=== PATIENT | male | born 1940 | race Caucasian/White ===

== ENCOUNTER 2020-05-21 08:46 | Inpatient (IN) | payer MEDICARE, OTHER ==
[~2020-05-21] VITALS: Ht 172.7 cm; Wt 116.1 kg
[2020-05-24 09:47] LABS: BASOPHILS 0.6 % (0-2); EOSINOPHILS 1.2 % (0-7); HEMATOCRIT 32.8 % (42.0-54.0); HEMOGLOBIN 10.2 g/dL (13.5-17.5); IMMATURE GRANULOCYTES 0.2 % (0-5); LYMPHOCYTES 20.2 % (15-50); MCH 28.1 pg (26.0-34.0); MCHC 31.1 g/dL (31.0-37.0); MCV 90.4 fL (80.0-100.0); MEAN PLATELET VOLUME 9.4 fL (7.4-10.4); MONOCYTES 6.1 % (2-11); NEUTROPHILS 71.7 % (40-80); PLATELET COUNT 166 10x3/uL (130-400); RBC 3.63 10x6/uL (4.20-6.10); RDW 14.9 % (11.5-14.5); WBC 5.2 10x3/uL (4.8-10.8)
[2020-05-24 09:53] LABS: ANION GAP 6.1 mmol/L (8-16); CALCIUM 8.6 mg/dL (8.5-10.1); CREATININE - SERUM 2.1 mg/dL (0.6-1.3); POTASSIUM - SERUM 4.1 mmol/L (3.5-5.1)
[2020-05-24] MEDS ORDERED: TOPROL XL25 MG (11:49)
[2020-05-24] MEDS ORDERED: HYTRIN10 MG (11:50)
[2020-05-24] MEDS ORDERED: ONGLYZA5 MG (11:50)
[2020-05-24] MEDS ORDERED: PACERONE200 MG PO (11:50)
[2020-05-24] MEDS ORDERED: ZOCOR20 MG PO (11:51)
[2020-05-24] MEDS ORDERED: GLIMEPIRIDE2 MG PO (11:52)
[2020-05-24] MEDS ORDERED: FUROSEMIDE20 MG PO (11:53)
[2020-05-24] MEDS ORDERED: NORVASC10 MG PO (11:53)
[2020-05-24] MEDS ORDERED: OXYBUTYNIN CHLOR5 MG (11:53)
[2020-05-24] MEDS ORDERED: BUSPAR 15 MG TA15 MG PO (11:54)
[2020-05-24] MEDS ORDERED: AVODART0.5 MG PO (11:54)
[2020-05-24] MEDS ORDERED: AMBIEN10 MG PO (11:58)
[2020-05-25] VITALS (12 sets, daily range): BP systolic 111–146; BP diastolic 48–64; BMI 39.1
[2020-05-25] MEDS ORDERED: ELIQUIS2.5 MG PO (06:51)
--- NOTE | 2020-05-25 13:00 | NUR ---
PT RECEIVED FROM OR AT THIS TIME. VSS. FAMILY CALLED GIVEN UPDATE. NOW AT BESDIDE. DENIES NEEDS WILL CONTINUE TO MONIOR
--- NOTE | 2020-05-25 15:15 | NUR ---
NO NEW CHANGES. PT RESTING COMFORTABLY WILL CONTINUE TO MONITOR
--- NOTE | 2020-05-25 17:12 | NUR ---
PT SLEEPING COMFORTABLY VSS NO NEW CHANGES WILL CONTINUE TO MONITOR
--- NOTE | 2020-05-25 19:38 | NUR ---
patient report recieved. no acute distress. under fritz drain noted swelling. nurse stated physicians are aware. fritz drain is leaking around site. fresh abd pad placed. see assessment. will continue to monitor for s.s of bleeding
--- NOTE | 2020-05-25 21:36 | NUR ---
repositioned. leads attached. morphine given per request
--- NOTE | 2020-05-25 21:55 | NUR ---
SPOKE WITH PHARMACY REGARDING MEDS NOT BEING STOCKED IN [facility].
--- NOTE | 2020-05-25 22:57 | NUR ---
PATIENT STATES THE AMBIEN IS NOT HELPING HIM SLEEP. WILL REASSES IN AN HOUR
[2020-05-26] VITALS (13 sets, daily range): BP systolic 121–158; BP diastolic 44–70; Ht 172.7 cm; Wt 116.1 kg
--- NOTE | 2020-05-26 04:33 | NUR ---
fritz drain stripped. hanging to gravity. swelling under laceration. decreased bleeding around incision site. changed dressing. will continue to monitor
[2020-05-26 04:51] LABS: BASOPHILS 0 % (0-2); EOSINOPHILS 0.9 % (0-7); HEMOGLOBIN 8.3 g/dL (13.5-17.5); IMMATURE GRANULOCYTES 0.2 % (0-5); LYMPHOCYTES 11.1 % (15-50); MCH 28.7 pg (26.0-34.0); MCHC 31.7 g/dL (31.0-37.0); MCV 90.7 fL (80.0-100.0); MEAN PLATELET VOLUME 9.8 fL (7.4-10.4); MONOCYTES 7.5 % (2-11); NEUTROPHILS 80.3 % (40-80); PLATELET COUNT 143 10x3/uL (130-400); RDW 15.3 % (11.5-14.5); WBC 6.4 10x3/uL (4.8-10.8)
[2020-05-26 04:56] LABS: ANION GAP 10.6 mmol/L (8-16); CALCIUM 7.8 mg/dL (8.5-10.1); CARBON DIOXIDE 25.4 mmol/L (21.0-32.0); CREATININE - SERUM 2.1 mg/dL (0.6-1.3); HEMATOCRIT 26.2 % (42.0-54.0); RBC 2.89 10x6/uL (4.20-6.10)
--- NOTE | 2020-05-26 07:00 | NUR ---
REC'D REPORT AND RESUMED CARE, UP IN BED PLAY GAME ON PHONE, AAO, VSS, DENIES PAIN, ASSESSMENT COMPLETED PER FLOWSHEET, CALL LIGHT IN REACH, INDEPENDENT REPOSITIONING, NO NEEDS A THIS TIME
--- NOTE | 2020-05-26 07:20 | NUR ---
REPORT RECEIVED. ASSESSMENT COMPLETE PER FLOW SHEET. VSS. DENIES NEEDS WILL CONTINUE TO MONITOR
--- NOTE | 2020-05-26 09:15 | NUR ---
PT ATE 25% BREAKFAST. DENIES NEEDS WILL CONTINUE TO MONTIOR
--- NOTE | 2020-05-26 11:15 | NUR ---
REASSESSMENT COMPLETE PER FLOW SHEET. VSS. PT RESTING COMFORTABLY DENIES NEEDS WILL CONTINUE TO MONITOR
[2020-05-26 12:38] LABS: HEMOGLOBIN 8.4 g/dL (13.5-17.5)
[2020-05-26] MEDS ORDERED: HYDROCODON-ACE1 EA10 PO (13:31)
--- NOTE | 2020-05-26 13:32 | OP ---
PATIENT NAME: RUDDY HERNANDES MEDICAL RECORD: [id number] :36 LOCATION:.[facility] [id number] ADMISSION DATE:05/25/20 SURGEON: JAGDISH STANFORD MD DATE OF OPERATION: 05/25/2020 PREOPERATIVE DIAGNOSES: 1. Right adrenal mass. 2. Pheochromocytoma. 3. Thyroid cancer. 4. Atrial fibrillation. 5. Benign prostatic hypertrophy. 6. Hypertension. 7. Diabetes mellitus. POSTOPERATIVE DIAGNOSES: 1. Right adrenal mass. 2. Pheochromocytoma. 3. Thyroid cancer. 4. Atrial fibrillation. 5. Benign prostatic hypertrophy. 6. Hypertension. 7. Diabetes mellitus. PROCEDURE: Retroperitoneoscopic right adrenalectomy. SURGEON: Jagdish Stanford MD REPORT OF PROCEDURE: The patient was placed in the jackknife prone position and the back and right flank were prepped and draped in sterile fashion. A skin incision was made on the skin just past the tip of the 12th rib on the right side. Electrocautery was used to dissect through the subcutaneous tissues and I eventually bluntly entered the retroperitoneal space. Once inside, I finger fractured some of the adhesions and was able to place 5-mm trocars medially and laterally. With these in place, a 12-mm balloon trocar was inserted and the retroperitoneal space was insufflated. A tedious dissection was performed of the fatty tissue off of the posterior abdominal wall. Eventually, we were able to get up through Gerota's fascia and visualize the patient's kidney. As we went past the kidney superiorly, we encountered a very large mass. This was a spongy feeling mass. It did not have any real adherent tissue anywhere. I was able to come around this mass and the only place there was any adherence was where the vessels were present. I was eventually able to dissect out what appeared to be the actual adrenal gland which was medial and inferior to this large mass. The mass was adherent to this. I was able to visualize the adrenal vein. This was clipped proximally and distally and ligated. We then came through all the vascular structures surrounding the large mass. It was very difficult to dissect the adrenal gland free because of just sheer size of this mass, so I went ahead and came through the most superior aspect of the adrenal gland and this freed up the mass where we could put this into an EndoCatch bag and move it out of the way. At this point, we were able to continue the dissection of the adrenal gland and I was able to take it out in total. Once the adrenal gland was removed using Harmonic scalpel, then we inspected the area and there was one site of bleeding, which was treated with electrocautery. There was no sign of any active bleeding at the conclusion of the case. Travis was infused into the retroperitoneal space and a 10-Finnish drain was then inserted through the most lateral trocar site. The ports and insufflation were OPERATIVE REPORT [id number] RUDDY HERNANDES then removed and the masses were removed as well. We had to extend the 12-mm trocar site in order to facilitate removal of the large mass. At the conclusion of the case, we reapproximated the fascial tissue of the back using interrupted 0 Vicryls. The subcutaneous tissues were irrigated out and then infused with 10 mL of 0.25% Marcaine with epinephrine. The skin incisions were closed with subcutaneous 5-0 Monocryl and the drain was sutured into place with 3-0 nylon. COMPLICATIONS: None. CONDITION: Stable. ANESTHESIA: General endotracheal and local. BLOOD LOSS: 50 mL. TRANSINT:[id number] Voice Confirmation ID: [id number] DOCUMENT ID: [id number] JAGDISH STANFORD MD at 1332 CC: KRISHNA ORTIZ [phone] DICTATION DATE: 05/25/20 1215 MOTOR INSPECTION MECHANIC: 05/25/20 1300 ADM IN [facility] [address] [place] [address]
== END 2020-05-26 16:34 | disposition home or self-care (01) | DRG 615 ==
LOC: D.SDCHOLD 05-25 06:24 → D.ICU 05-25 06:24 → D.SDCHOLD 05-25 07:30 → D.ICU 05-25 12:17
PROVIDERS: Anesthesiology; ADMIT Surgery; ATTEND Surgery
PROC: 0GT30ZZ Resection of Right Adrenal Gland, Open Approach (ICD-10-PCS; principal; 2020-05-25 08:15)
DX: D35.01 Benign neoplasm of right adrenal gland (principal); I48.91 Unspecified atrial fibrillation; N40.0 Benign prostatic hyperplasia without lower urinary tract symptoms; I10 Essential (primary) hypertension; E11.9 Type 2 diabetes mellitus without complications; C73 Malignant neoplasm of thyroid gland; E27.8 Other specified disorders of adrenal gland

== ENCOUNTER 2020-05-28 10:39 | Emergency (ER) | payer MEDICARE, OTHER ==
[~2020-05-28] VITALS: Ht 172.7 cm; Wt 118.2 kg
[~2020-05-28 10:39] MED LIST: AMBIEN10 MG PO; AVODART0.5 MG PO; BUSPAR 15 MG TA15 MG PO; ELIQUIS2.5 MG PO; FUROSEMIDE20 MG PO; GLIMEPIRIDE2 MG PO; HYDROCODON-ACE1 EA10 PO; HYTRIN10 MG; NORVASC10 MG PO; ONGLYZA5 MG; OXYBUTYNIN CHLOR5 MG; PACERONE200 MG PO; TOPROL XL25 MG; ZOCOR20 MG PO
[2020-05-28 11:00] VITALS: Ht 172.7 cm; Wt 118.2 kg
[2020-05-28 12:09] LABS: BASOPHILS 0.2 % (0-2); EOSINOPHILS 0.5 % (0-7); HEMATOCRIT 25.6 % (42.0-54.0); IMMATURE GRANULOCYTES 0.3 % (0-5); LYMPHOCYTES 14.6 % (15-50); MCH 28.1 pg (26.0-34.0); MCHC 31.3 g/dL (31.0-37.0); MCV 89.8 fL (80.0-100.0); MONOCYTES 6.4 % (2-11); PLATELET COUNT 131 10x3/uL (130-400); RBC 2.85 10x6/uL (4.20-6.10); RDW 15.2 % (11.5-14.5); WBC 6.1 10x3/uL (4.8-10.8)
[2020-05-28 12:10] LABS: NITRITE NEGATIVE (NEGATIVE); SPECIFIC GRAVITY 1.015 (1.005-1.020)
[2020-05-28 12:11] LABS: BILIRUBIN NEGATIVE (NEGATIVE); GLUCOSE NEGATIVE (NEGATIVE); KETONE NEGATIVE (NEGATIVE); UROBILINOGEN NORMAL (NORMAL)
[2020-05-28 12:12] LABS: BACTERIA FEW /hpf (NEGATIVE); RED CELLS - URINE RARE /hpf (0-5); WHITE CELLS - URINE 0-5 /hpf (NEGATIVE)
[2020-05-28 12:55] LABS: ANION GAP 8.1 mmol/L (8-16); CALCIUM 8.1 mg/dL (8.5-10.1); CARBON DIOXIDE 27.9 mmol/L (21.0-32.0); CREATININE - SERUM 2.1 mg/dL (0.6-1.3)
[2020-05-28 12:58] LABS: ALBUMIN 2.4 g/dL (3.4-5.0); BILIRUBIN - TOTAL 0.66 mg/dL (0.2-1.3); PROTEIN - SERUM 6.6 g/dL (6.4-8.2)
[2020-05-28] MEDS ORDERED: CHRONULAC30 ML PO (13:30)
[2020-05-28 14:03] VITALS: BP 125/56
== END 2020-05-28 14:50 | disposition home or self-care (01) ==
LOC: D.ER 10:39
PROVIDERS: Family Medicine
DX: I12.9 Hypertensive chronic kidney disease with stage 1 through stage 4 chronic kidney disease, or unspecified chronic kidney disease (principal); E11.22 Type 2 diabetes mellitus with diabetic chronic kidney disease; N18.9 Chronic kidney disease, unspecified; K59.00 Constipation, unspecified; R53.1 Weakness; E83.51 Hypocalcemia; Z99.81 Dependence on supplemental oxygen; Z79.84 Long term (current) use of oral hypoglycemic drugs

== ENCOUNTER 2020-05-29 06:27 | Inpatient (IN) | payer MEDICARE, OTHER ==
[~2020-05-29] VITALS: Ht 172.7 cm; Wt 118.2 kg
[~2020-05-29 06:27] MED LIST changes: +CHRONULAC30 ML PO
--- NOTE | 2020-05-29 07:30 | NUR ---
clean dressing applied to wound to right abd
--- NOTE | 2020-05-29 07:30 | NUR ---
approximately 1300 ml urine in wylie catheter bag
--- NOTE | 2020-05-29 07:35 | NUR ---
patient arrived with indwelling wylie, that was ot draining, I attempted to flush with ns, 400 cc, no output. Changed out wylie using sterile technique, patient tolerated well, wylie still drainging, I gave report to Asha SHARIF.
[2020-05-29 07:43] LABS: BILIRUBIN NEGATIVE (NEGATIVE); GLUCOSE NEGATIVE (NEGATIVE); KETONE NEGATIVE (NEGATIVE); NITRITE NEGATIVE (NEGATIVE); RED CELLS - URINE 0-5 /hpf (0-5); SPECIFIC GRAVITY 1.015 (1.005-1.020); UROBILINOGEN NORMAL (NORMAL); WHITE CELLS - URINE 0-5 /hpf (NEGATIVE)
[2020-05-29 07:44] LABS: AMORPHOUS SEDIMENT >1+ /lpf (NONE SEEN); BACTERIA MODERATE /hpf (NEGATIVE)
[2020-05-29 07:57] LABS: BASOPHILS 0 % (0-2); EOSINOPHILS 0.5 % (0-7); HEMATOCRIT 24.2 % (42.0-54.0); HEMOGLOBIN 7.6 g/dL (13.5-17.5); IMMATURE GRANULOCYTES 0.3 % (0-5); LYMPHOCYTES 9.3 % (15-50); MCH 28.4 pg (26.0-34.0); MCHC 31.4 g/dL (31.0-37.0); MCV 90.3 fL (80.0-100.0); MEAN PLATELET VOLUME 9.6 fL (7.4-10.4); MONOCYTES 11.8 % (2-11); NEUTROPHILS 78.1 % (40-80); PLATELET COUNT 146 10x3/uL (130-400); RBC 2.68 10x6/uL (4.20-6.10); RDW 15.2 % (11.5-14.5); WBC 6.3 10x3/uL (4.8-10.8)
[2020-05-29 08:12] LABS: ANION GAP 10.5 mmol/L (8-16); CALCIUM 8.2 mg/dL (8.5-10.1); CARBON DIOXIDE 27.3 mmol/L (21.0-32.0); CREATININE - SERUM 2.1 mg/dL (0.6-1.3); POTASSIUM - SERUM 3.8 mmol/L (3.5-5.1)
--- NOTE | 2020-05-29 08:49 | NUR ---
STOOL NEGATIVE FOR OCCULT BLOOD. ADVISED EDP ANGIE. PT PROVIDED WITH WARM BLANKET. DENIES NEEDS AT THIS TIME.
--- NOTE | 2020-05-29 09:13 | NUR ---
CALLED REPORT TO IVÁN AT THIS TIME
--- NOTE | 2020-05-29 09:55 | NUR ---
RECEIVED PATIENT FROM ER. ALERT AND ORIENTED. NO C/O PAIN. NO S/S OF ACUTE DISTRESS NOTED. CORADO CATHETER. IV TO LEFT AC, SL. SITE PATENT WITHOUT REDNESS OR SWELLING. DRESSING TO LEFT ABDOMEN, C/D/I. BRUISING TO ABDOMEN. UP WITH ASSIST. DENIES ANY NEEDS AT THIS TIME. CALL LIGHT IN REACH. WILL CONTINUE TO MONITOR.
[2020-05-29 10:18] LABS: % SATURATION 9 % (15-55); IRON 14 ug/dl (35-150); TOTAL IRON BIND CAPACITY 153 ug/dl (260-445); UNSAT IRON BIND CAPACITY 139 ug/dl (150-375)
--- NOTE | 2020-05-29 12:20 | NUR ---
INFUSION OF 1ST UNIT OF PRBCS ON PATIENT STARTED. NO S/S OF ACUTE DISTRESS NOTED. VITALS STABLE.
[2020-05-29 14:41] VITALS: BMI 39.6
[2020-05-29 15:27] VITALS: BP 118/56
[2020-05-29 17:20] LABS: HEMATOCRIT 27.7 % (42.0-54.0); HEMOGLOBIN 8.8 g/dL (13.5-17.5)
--- NOTE | 2020-05-29 18:40 | NUR ---
RESTING IN BED WITH EYES OPEN. NO C/O PAIN. NO S/S OF ACUTE DISTRESS NOTED. DENIES ANY NEEDS AT THIS TIME. CALL LIGHT IN REACH. WILL CONTINUE TO MONITOR.
--- NOTE | 2020-05-29 19:33 | NUR ---
RECIEVED BEDSIDE SHIFT REPORT. ALERT AND ORIENTED X4. UP WITH MAX ASSIST X2. O2@ 2.5 LITERS PER N/C IN PLACE. IV TO LTAC SL. DSG TO RT ABDOMEN. F/C INTACT. DENIES ANY NEEDS AT THIS TIME.
[2020-05-29 20:47] VITALS: BP 116/60
[2020-05-30 00:22] VITALS: BP 126/51
[2020-05-30 04:30] VITALS: BP 121/57
[2020-05-30 06:02] LABS: BASOPHILS 0.1 % (0-2); EOSINOPHILS 0.5 % (0-7); HEMATOCRIT 27.1 % (42.0-54.0); HEMOGLOBIN 8.6 g/dL (13.5-17.5); IMMATURE GRANULOCYTES 0.5 % (0-5); LYMPHOCYTES 13.4 % (15-50); MCH 28.6 pg (26.0-34.0); MCHC 31.7 g/dL (31.0-37.0); MEAN PLATELET VOLUME 10.1 fL (7.4-10.4); MONOCYTES 9.8 % (2-11); NEUTROPHILS 75.7 % (40-80); PLATELET COUNT 162 10x3/uL (130-400); RBC 3.01 10x6/uL (4.20-6.10); RDW 15.4 % (11.5-14.5); WBC 7.7 10x3/uL (4.8-10.8)
[2020-05-30 06:33] LABS: CALCIUM 8.4 mg/dL (8.5-10.1); CARBON DIOXIDE 26.4 mmol/L (21.0-32.0); CREATININE - SERUM 1.9 mg/dL (0.6-1.3); POTASSIUM - SERUM 3.4 mmol/L (3.5-5.1)
--- NOTE | 2020-05-30 06:39 | NUR ---
BLOOD SUGAR 51. ASYMPTOMATIC. SNACK GIVEN. WILL REPORT TO ON COMMING.
--- NOTE | 2020-05-30 07:46 | NUR ---
RECIEVE REPORT. PATIENT RESTING IN BED WITH EYES CLOSED. NO SIGNS OF DISTRESS. HEMOGLOBIN 8.6, HEMATOCRIT 27.1 AFTER RECIEVING 1 UNIT OF BLOOD 05/29/20. CALL LIGHT IN REACH.
[2020-05-30 09:17] VITALS: BP 136/62
[2020-05-30 12:08] VITALS: BP 130/60
[2020-05-30 15:07] VITALS: Ht 172.7 cm; Wt 118.2 kg
--- NOTE | 2020-05-30 16:00 | NUR ---
CALLED ROSEMARY DUNBAR APRN ABOUT A CRITICAL LAB VALUE. D-DIMER 8.69. TELEPHONE ORDERS FOR VQ SCAN AND BILATERAL LOWER EXTREMITIES VENOUS DOPPLER TO RULE OUT DVT.
--- NOTE | 2020-05-30 17:00 | NUR ---
BLOOD SUGAR 52, GAVE 30ML DEXTROSE IVP PER ORDERS. GONE TO VQ SCAN VIA WHEELCHAIR. WILL RECHECK BLOOD SUGAR WHEN BACK TO THE FLOOR.
[2020-05-30 17:11] VITALS: BP 142/63
--- NOTE | 2020-05-30 18:00 | NUR ---
RETURNED FROM SCAN. RECHECKED BLOOD SUGAR AND IT WAS 65. GAVE GRAHM CRACKERS, PEANUT BUTTER AND ORANGE JUICE. PATIENT SITTING IN BED, ALERT AND ORIENTED. CALL LIGHT IN REACH.
[2020-05-30 20:30] VITALS: BP 123/61
[2020-05-31 04:36] VITALS: BP 119/42
[2020-05-31 05:43] LABS: BASOPHILS 0.3 % (0-2); EOSINOPHILS 0.6 % (0-7); HEMOGLOBIN 8.8 g/dL (13.5-17.5); IMMATURE GRANULOCYTES 0.7 % (0-5); LYMPHOCYTES 8.4 % (15-50); MCH 28.4 pg (26.0-34.0); MCHC 31.4 g/dL (31.0-37.0); MCV 90.3 fL (80.0-100.0); MEAN PLATELET VOLUME 9.8 fL (7.4-10.4); MONOCYTES 8.7 % (2-11); NEUTROPHILS 81.3 % (40-80); PLATELET COUNT 176 10x3/uL (130-400); RDW 15.4 % (11.5-14.5); WBC 6.7 10x3/uL (4.8-10.8)
[2020-05-31 06:18] LABS: ANION GAP 12.2 mmol/L (8-16); POTASSIUM - SERUM 3.2 mmol/L (3.5-5.1)
--- NOTE | 2020-05-31 07:20 | NUR ---
RECEIVE REPORT AT BEDSIDE. RESTING IN BED WITH EYES CLOSED. NO SIGNS OF DISTRESS. CALL LIGHT IN REACH. WILL CONTINUE PLAN OF CARE AND SAFETY PRECAUTIONS.
[2020-05-31 08:16] VITALS: BP 91/55
--- NOTE | 2020-05-31 12:08 | MORECARE ---
CASE MANAGEMENT DISCHARGE SUMMARY PATIENT: RUDDY HERNANDES UNIT: [id number] ADM DATE: 05/29/20 AGE: 80 : 38 SEX: M ROOM/BED: D.2105 AUTHOR: SHEEBA,DOC PHYSICIAN: REFERRING PHYSICIAN: RINKU VALLECILLO MD DATE OF SERVICE: 05/31/20 Discharge Plan Patient Name: RUDDY HERNANDES Facility: [facility]:[place] : 1940 Planned Disposition: Home with Home Health Anticipated Discharge Date: 05/31/20 Discharge Date: Expected LOS: 2 Initial Reviewer: [email or web address] Initial Review Date: 05/29/2020 Generated: 05/31/20 1:08 pm Comments DCP- Discharge Planning Updated by [email or web address]: Anali Carney on 05/31/20 11:[address] CM met with patient to discuss initial discharge planning. Patient is in agreement to proceed with the assessment. Patient reports that he lives at home independently with his , Ruthy Hernandes, #[phone] . Patient is alert/oriented. Stairs/steps: 1. PCP: Dr. Peres. Pharmacy: [facility], [address]. Patient states he has been able to obtain all of his prescribed medications. [facility]: [facility]. DME: O2 concentrator w/portability, Bi-pap, showerchair. Patient gives permission to speak with family members. CM contacted patient's regarding HHS, transportation. Patient is Independent with all ADL's,medication management APICULTURIST. CM discussed the availability of HH, Rehab, SNF, OP Therapy, DME services. Patient and feels safe returning to previous environment. Patient denies hospitalization within the past 30 days. Patient denies the use of community resources APICULTURIST. Transportation at time of discharge: Patient's brother, Gigi Hernandes, #[phone]. CM will assist PRN. Coverage Notice Reviewer: [id number] - Anali Carney Notice Issued Date-Time: 05/31/2020 12:03 Notice Type: Patient Choice Letter Notice Delivered To: Patient Relationship to Patient: Self Early Childhood Director Name: Ruddy Hernandes Delivery Method: HAND - Hand Delivered Rosalba Days: Prior Verbal Notification: Recipient Understood Notice: Yes Recipient Signature: Yes Med Rec Note Co-signed by Attending: Coverage Notice Comment: [facility]. Reviewer: [id number] Irineo Carney Notice Issued Date-Time: 05/31/2020 12:03 Notice Type: IM Discharge Notice Notice Delivered To: Patient Relationship to Patient: Self Early Childhood Director Name: Ruddy Hernandes Delivery Method: HAND - Hand Delivered Rosalba Days: Prior Verbal Notification: Recipient Understood Notice: Yes Recipient Signature: Yes Med Rec Note Co-signed by Attending: Coverage Notice Comment: DC IMM signed/given to patient. Original tochart. Patient Name: RUDDY HERNANDES Page [phone] at 1208 All edits/amendments must be made on the electronic document DICTATION DATE: 05/31/20 120 RUBBISH COLLECTOR: HENRRY 05/31/20 1208 RPT#: [id number] DC DATE: STATUS: ADM IN [facility] [address] [place] [address] END OF REPORT
--- NOTE | 2020-05-31 12:16 | MORECARE ---
CASE MANAGEMENT DISCHARGE SUMMARY PATIENT: RUDDY HERNANDES UNIT: [id number] ADM DATE: 05/29/20 AGE: 80 : 38 SEX: M ROOM/BED: D.2104 AUTHOR: SHEEBA,DOC PHYSICIAN: REFERRING PHYSICIAN: RINKU VALLECILLO MD DATE OF SERVICE: 05/31/20 Discharge Plan Patient Name: RUDDY HERNANDES Facility: [facility]:[place] : 1940 Planned Disposition: Home with Home Health Anticipated Discharge Date: 05/31/20 Discharge Date: Expected LOS: 2 Initial Reviewer: [email or web address] Initial Review Date: 05/29/2020 Generated: 05/31/20 1:15 pm Comments DCP- Discharge Planning Updated by [email or web address]: Anail Carney on 05/31/20 11:[address] CM met with patient to discuss initial discharge planning. Patient is in agreement to proceed with the assessment. Patient reports that he lives at home independently with his , Ruthy Hernandes, #[phone] . Patient is alert/oriented. Stairs/steps: 1. PCP: Dr. Peres. Pharmacy: [facility], [address]. Patient states he has been able to obtain all of his prescribed medications. [facility]: [facility]. DME: O2 concentrator w/portability, Bi-pap, showerchair. Patient gives permission to speak with family members. CM contacted patient's regarding HHS, transportation. Patient is Independent with all ADL's,medication management ASSEMBLER ENGINE. CM discussed the availability of HH, Rehab, SNF, OP Therapy, DME services. Patient and feels safe returning to previous environment. Patient denies hospitalization within the past 30 days. Patient denies the use of community resources ASSEMBLER ENGINE. Transportation at time of discharge: Patient's brother, Gigi Hernandes, #[phone]. CM will assist PRN. DCPIA - Discharge Planning Initial Assessment Updated by [id number]: Anali Carney on 05/31/20 12:12 pm * Is the patient Alert and Oriented? Yes * How many steps to enter\exit or inside your home? * PCP Dr. Peres * Pharmacy [facility] [address] * Preadmission Environment Home with Family * ADLs Independent * Equipment Oxygen Rolling Walker Shower Chair Tub Bench Wheelchair * Other Equipment Portable O2 * List name and contact numbers for known caregivers / representatives who currently or will assist patient after discharge: Ruthy Hernandes () [phone] Gigi Hernandes () [phone] * Verbal permission to speak to the caregivers and representatives has been obtained from the patient. Yes * Community resources currently utilized Home Health * Please name any agencies selected above. [facility] * Additional services required to return to the preadmission environment? Yes * Can the patient safely return to the preadmission environment? Yes * Has this patient been hospitalized within the prior 30 days at any hospital? Yes Coverage Notice Reviewer: [id number] Irineo Carney Notice Issued Date-Time: 05/31/2020 12:03 Notice Type: Patient Choice Letter Notice Delivered To: Patient Relationship to Patient: Self Parts Counter Salesperson Name: Ruddy Hernandes Delivery Method: HAND - Hand Delivered Rosalba Days: Prior Verbal Notification: Recipient Understood Notice: Yes Recipient Signature: Yes Med Rec Note Co-signed by Attending: Coverage Notice Comment: [facility]. Reviewer: [id number] Irineo Carney Notice Issued Date-Time: 05/31/2020 12:03 Notice Type: IM Discharge Notice Notice Delivered To: Patient Relationship to Patient: Self Parts Counter Salesperson Name: Ruddy Hernandes Delivery Method: HAND - Hand Delivered Rosalba Days: Prior Verbal Notification: Recipient Understood Notice: Yes Recipient Signature: Yes Med Rec Note Co-signed by Attending: Coverage Notice Comment: DC IMM signed/given to patient. Original tochart. Patient Name: RUDDY HERNANDES Page [phone] at 1216 All edits/amendments must be made on the electronic document DICTATION DATE: 05/31/20 1216 DINKEY OPERATOR SLAG: HENRRY 05/31/20 1216 RPT#: [id number] DC DATE: STATUS: ADM IN [facility] [address] [place] [address] END OF REPORT
[2020-05-31] MEDS ORDERED: LEVOFLOXACIN500 MG PO (12:25)
--- NOTE | 2020-05-31 12:33 | MORECARE ---
CASE MANAGEMENT DISCHARGE SUMMARY PATIENT: RUDDY HERNANDES UNIT: [id number] ADM DATE: 05/29/20 AGE: 80 : 38 SEX: M ROOM/BED: D.2106 AUTHOR: SHEEBA,DOC PHYSICIAN: REFERRING PHYSICIAN: RINKU VALLECILLO MD DATE OF SERVICE: 05/31/20 Discharge Plan Patient Name: RUDDY HERNANDES Facility: [facility]:[place] : 1940 Planned Disposition: Home with Home Health Anticipated Discharge Date: 05/31/20 Discharge Date: Expected LOS: 2 Initial Reviewer: [email or web address] Initial Review Date: 05/29/2020 Generated: 05/31/20 1:32 pm Comments DCP- Discharge Planning Updated by [id number]: Anali Carney on 05/31/20 11:[address] DC Plan: Home with [employer] [facility]. Faxed required information to Betty [email or web address] [facility]. CM met with patient to discuss initial discharge planning. Patient is in agreement to proceed with the assessment. Patient reports that he lives at home independently with his , Ruthy Hernandes, #[phone] . Patient is alert/oriented. Stairs/steps: 1. PCP: Dr. Peres. Pharmacy: [facility], [address]. Patient states he has been able to obtain all of his prescribed medications. H[facility]: [facility]. DME: O2 concentrator w/portability, Bi-pap, showerchair. Patient gives permission to speak with family members. CM contacted patient's regarding HHS, transportation. Patient is Independent with all ADL's,medication management COUNTER CUTTER. CM discussed the availability of HH, Rehab, SNF, OP Therapy, DME services. Patient and feels safe returning to previous environment. Patient denies hospitalization within the past 30 days. Patient denies the use of community resources COUNTER CUTTER. Transportation at time of discharge: Patient's brother, Gigi Hernandes, #[phone]. CM will assist PRN. DCPIA - Discharge Planning Initial Assessment Updated by [email or web address]: Anali Carney on 05/31/20 12:12 pm * Is the patient Alert and Oriented? Yes * How many steps to enter\exit or inside your home? * PCP Dr. Peres * Pharmacy [facility] [address] * Preadmission Environment Home with Family * ADLs Independent * Equipment Oxygen Rolling Walker Shower Chair Tub Bench Wheelchair * Other Equipment Portable O2 * List name and contact numbers for known caregivers / representatives who currently or will assist patient after discharge: Ruthy Hernandes () [phone] Gigi Hernandes () [phone] * Verbal permission to speak to the caregivers and representatives has been obtained from the patient. Yes * Community resources currently utilized Home Health * Please name any agencies selected above. [facility] * Additional services required to return to the preadmission environment? Yes * Can the patient safely return to the preadmission environment? Yes * Has this patient been hospitalized within the prior 30 days at any hospital? Yes External Providers External Provider: [facility] Next Contact Date: Service Request Date: Service Type: Resolution: Reviewer: Comments: Coverage Notice Reviewer: [id number] Irineo Carney Notice Issued Date-Time: 05/31/2020 12:03 Notice Type: Patient Choice Letter Notice Delivered To: Patient Relationship to Patient: Self Fire Range Technician Name: Ruddy Hernandes Delivery Method: HAND - Hand Delivered Rosalba Days: Prior Verbal Notification: Recipient Understood Notice: Yes Recipient Signature: Yes Med Rec Note Co-signed by Attending: Coverage Notice Comment: [facility]. Reviewer: [id number] Irineo Carney Notice Issued Date-Time: 05/31/2020 12:03 Notice Type: IM Discharge Notice Notice Delivered To: Patient Relationship to Patient: Self Fire Range Technician Name: Ruddy Hernandes Delivery Method: HAND - Hand Delivered Rosalba Days: Prior Verbal Notification: Recipient Understood Notice: Yes Recipient Signature: Yes Med Rec Note Co-signed by Attending: Coverage Notice Comment: DC IMM signed/given to patient. Original tochart. Last DP export: 05/31/20 11:16 a Patient Name: RUDDY HERNANDES Page [phone] at 1233 All edits/amendments must be made on the electronic document DICTATION DATE: 05/31/20 1232 METALLOGRAPHY TEACHER: HENRRY 05/31/20 1232 RPT#: [id number] DC DATE: STATUS: ADM IN [facility] [address] [facility], [facility] END OF REPORT
[2020-05-31 12:48] VITALS: BP 141/58
--- NOTE | 2020-05-31 14:15 | NUR ---
GAVE DISCHARGE INSTRUCTIONS. NOTIFIED AND IS ON HER WAY. VERBALLY AND WRITTEN DISCHARGE INSTRUCTIONS. D/C LEFT AC IV, TIP INTACT.
--- NOTE | 2020-05-31 15:00 | NUR ---
ARRIVED AT ER [facility]. ESCORTED DOWN VIA WHEELCHAIR. PATIENT REMAINS UNHARMED.
--- NOTE | 2020-05-31 15:49 | MORECARE ---
CASE MANAGEMENT DISCHARGE SUMMARY PATIENT: RUDDY HERNANDES UNIT: [id number] ADM DATE: 05/29/20 AGE: 80 : 38 SEX: M ROOM/BED: D.2109 AUTHOR: SHEEBA,DOC PHYSICIAN: REFERRING PHYSICIAN: RINKU VALLECILLO MD DATE OF SERVICE: 05/31/20 Discharge Plan Patient Name: RUDDY HERNANDES Facility: [facility]:[place] : 1940 Planned Disposition: Home with Home Health Anticipated Discharge Date: 05/31/20 Discharge Date: 05/31/2020 Expected LOS: 2 Initial Reviewer: [email or web address] Initial Review Date: 05/29/2020 Generated: 05/31/20 4:48 pm Comments DCP- Discharge Planning Updated by [email or web address]: Anali Carney on 05/31/20 11:[address] DC Plan: Home with [email or web address] [facility]. Faxed required information to [email or web address] [facility]. CM met with patient to discuss initial discharge planning. Patient is in agreement to proceed with the assessment. Patient reports that he lives at home independently with his , Ruthy Hernandes, #[phone] . Patient is alert/oriented. Stairs/steps: 1. PCP: Dr. Peres. Pharmacy: [facility], [address]. Patient states he has been able to obtain all of his prescribed medications. H[facility]: [facility]. DME: O2 concentrator w/portability, Bi-pap, showerchair. Patient gives permission to speak with family members. CM contacted patient's regarding HHS, transportation. Patient is Independent with all ADL's,medication management PSYCHIATRIC SPECIALIST. CM discussed the availability of HH, Rehab, SNF, OP Therapy, DME services. Patient and feels safe returning to previous environment. Patient denies hospitalization within the past 30 days. Patient denies the use of community resources PSYCHIATRIC SPECIALIST. Transportation at time of discharge: Patient's brother, Gigi Hernandes, #[phone]. CM will assist PRN. DCPIA - Discharge Planning Initial Assessment Updated by [email or web address]: Anali Carney on 05/31/20 12:12 pm * Is the patient Alert and Oriented? Yes * How many steps to enter\exit or inside your home? * PCP Dr. Peres * Pharmacy [facility] * Preadmission Environment Home with Family * ADLs Independent * Equipment Oxygen Rolling Walker Shower Chair Tub Bench Wheelchair * Other Equipment Portable O2 * List name and contact numbers for known caregivers / representatives who currently or will assist patient after discharge: Ruthy Hernandes () [phone] Gigi Hernandes () [phone] * Verbal permission to speak to the caregivers and representatives has been obtained from the patient. Yes * Community resources currently utilized Home Health * Please name any agencies selected above. [facility] * Additional services required to return to the preadmission environment? Yes * Can the patient safely return to the preadmission environment? Yes * Has this patient been hospitalized within the prior 30 days at any hospital? Yes Coverage Notice Reviewer: [email or web address] Irineo Carney Notice Issued Date-Time: 05/31/2020 12:03 Notice Type: Patient Choice Letter Notice Delivered To: Patient Relationship to Patient: Self Elevator Installer Name: Ruddy Hernandes Delivery Method: HAND - Hand Delivered Rosalba Days: Prior Verbal Notification: Recipient Understood Notice: Yes Recipient Signature: Yes Med Rec Note Co-signed by Attending: Coverage Notice Comment: [employer]. Reviewer: [id number] Irineo Carney Notice Issued Date-Time: 05/31/2020 12:03 Notice Type: IM Discharge Notice Notice Delivered To: Patient Relationship to Patient: Self Elevator Installer Name: Ruddy Hernandes Delivery Method: HAND - Hand Delivered Rosalba Days: Prior Verbal Notification: Recipient Understood Notice: Yes Recipient Signature: Yes Med Rec Note Co-signed by Attending: Coverage Notice Comment: DC IMM signed/given to patient. Original gael. Last DP export: 05/31/20 11:33 a Patient Name: RUDDY HERNANDES Page [phone] at 1549 All edits/amendments must be made on the electronic document DICTATION DATE: 05/31/208 DISPLAY ASSOCIATE: HENRRY 05/31/20 1548 RPT#: [id number] DC DATE:05/31/20 STATUS: DIS IN [facility] [id number] [place] [address] END OF REPORT
--- NOTE | 2020-06-01 15:05 | NUR ---
DISCHAARGE MEDICATION ESCRIPTED FROM MERCEDES MADDOX WAS NOT SENT TO [facility] PER DISCHARGE SHEET STATES. I CALLED AND SPOKE WITH MAGY - PHARMACIST AND CALLED THE [facility] IN.
--- NOTE | 2020-06-01 17:53 | MORECARE ---
CASE MANAGEMENT DISCHARGE SUMMARY PATIENT: RUDDY HERNANDES UNIT: [id number] ADM DATE: 05/29/20 AGE: 80 : 36 SEX: M ROOM/BED: D.2107 AUTHOR: SHEEBA,DOC PHYSICIAN: REFERRING PHYSICIAN: RINKU VALLECILLO MD DATE OF SERVICE: 06/01/20 Discharge Plan Patient Name: RUDDY HERNANDES Facility: [facility]:[place] : 1940 Planned Disposition: Home with Home Health Anticipated Discharge Date: 05/31/20 Discharge Date: 05/31/2020 Expected LOS: 2 Initial Reviewer: [email or web address] Initial Review Date: 05/29/2020 Generated: 06/01/20 6:53 pm Comments DCP- Discharge Planning Updated by [email or web address]: Anali Carney on 06/01/20 4:[address] DC Plan: Home with [facility]. Faxed required information to Betty @[facility]. CM met with patient to discuss initial discharge planning. Patient is in agreement to proceed with the assessment. Patient reports that he lives at home independently with his , Ruthy Hernandes, #[phone] . Patient is alert/oriented. Stairs/steps: 1. PCP: Dr. Peres. Pharmacy: [facility], [address] Patient states he has been able to obtain all of his prescribed medications. [facility]: [facility]. DME: O2 concentrator w/portability, Bi-pap, showerchair. Patient gives permission to speak with family members. CM contacted patient's regarding HHS, transportation. Patient is Independent with all ADL's,medication management GASTROENTEROLOGY TECHNICIAN. CM discussed the availability of HH, Rehab, SNF, OP Therapy, DME services. Patient and feels safe returning to previous environment. Patient denies the use of community resources GASTROENTEROLOGY TECHNICIAN. Transportation at time of discharge: Patient's brother, Gigi Hernandes, #[phone]. CM will assist PRN. DCPIA - Discharge Planning Initial Assessment Updated by [email or web address]: Anali Carney on 05/31/20 12:12 pm * Is the patient Alert and Oriented? Yes * How many steps to enter\exit or inside your home? * PCP Dr. Peres * [facility] * Preadmission Environment Home with Family * ADLs Independent * Equipment Oxygen Rolling Walker Shower Chair Tub Bench Wheelchair * Other Equipment Portable O2 * List name and contact numbers for known caregivers / representatives who currently or will assist patient after discharge: Ruthy Hernandes () [phone] Ggii Hernandes () [phone] * Verbal permission to speak to the caregivers and representatives has been obtained from the patient. Yes * Community resources currently utilized Home Health * Please name any agencies selected above. [facility] * Additional services required to return to the preadmission environment? Yes * Can the patient safely return to the preadmission environment? Yes * Has this patient been hospitalized within the prior 30 days at any hospital? Yes Coverage Notice Reviewer: [email or web address] Irineo Carney Notice Issued Date-Time: 05/31/2020 12:03 Notice Type: Patient Choice Letter Notice Delivered To: Patient Relationship to Patient: Self Stroke Program Coordinator Name: Ruddy Hernandes Delivery Method: HAND - Hand Delivered Rosalba Days: Prior Verbal Notification: Recipient Understood Notice: Yes Recipient Signature: Yes Med Rec Note Co-signed by Attending: Coverage Notice Comment: [facility]. Reviewer: [email or web address] Irineo Carney Notice Issued Date-Time: 05/31/2020 12:03 Notice Type: IM Discharge Notice Notice Delivered To: Patient Relationship to Patient: Self Stroke Program Coordinator Name: Ruddy Hernandes Delivery Method: HAND - Hand Delivered Rosalba Days: Prior Verbal Notification: Recipient Understood Notice: Yes Recipient Signature: Yes Med Rec Note Co-signed by Attending: Coverage Notice Comment: [facility] IMM signed/given to [facility]. [facility] Last DP export: 05/31/20 2:49 p Patient Name: RUDDY HERNANDES Page [id number] at 1753 All edits/amendments must be made on the electronic document DICTATION DATE: 06/01/201752 BEAUTY OPERATOR APPRENTICE: [id number] 06/01/201752 RPT#: [id number] DC DATE:05/31/20 STATUS: [facility] [address] [place] [address] END OF REPORT
[2020-06-02 13:14] LABS: SPE - A/G RATIO 0.7 (0.7-1.7); SPE - ALBUMIN 2.7 g/dL (2.9-4.4); SPE - ALPHA-1 GLOBULIN 0.4 g/dL (0.0-0.4); SPE - BETA GLOBULIN 0.6 g/dL (0.7-1.3); SPE - GAMMA GLOBULIN 1.9 g/dL (0.4-1.8); SPE - M-SPIKE 1.7 g/dL (Not Observed); SPE - TOTAL PROTEIN 6.6 g/dL (6.0-8.5)
== END 2020-05-31 15:25 | disposition home health service (06) | DRG 699 ==
LOC: D.ER 06:27 → D.M2 08:53 → OBSVTIME 08:53 → D.M2 08:53
PROVIDERS: Emergency Medicine; Family Medicine; ADMIT Emergency Medicine; ATTEND Emergency Medicine
DX: T83.518A Infection and inflammatory reaction due to other urinary catheter, initial encounter (principal); N39.0 Urinary tract infection, site not specified; Y84.6 Urinary catheterization as the cause of abnormal reaction of the patient, or of later complication, without mention of misadventure at the time of the procedure; I48.91 Unspecified atrial fibrillation; I25.10 Atherosclerotic heart disease of native coronary artery without angina pectoris; D35.00 Benign neoplasm of unspecified adrenal gland; K59.00 Constipation, unspecified; D50.9 Iron deficiency anemia, unspecified; N40.0 Benign prostatic hyperplasia without lower urinary tract symptoms; E11.22 Type 2 diabetes mellitus with diabetic chronic kidney disease; I12.9 Hypertensive chronic kidney disease with stage 1 through stage 4 chronic kidney disease, or unspecified chronic kidney disease; N18.9 Chronic kidney disease, unspecified

== ENCOUNTER → 2020-08-16 08:42 | Outpatient (CLI) | payer MEDICARE, OTHER ==
[2020-05-30 15:07] VITALS: BMI 39.6
[~2020-08-16 08:42] MED LIST changes: +LEVOFLOXACIN500 MG PO
== END | disposition home or self-care (01) ==
LOC: D.CT 08:42
PROVIDERS: ATTEND Surgery
DX: R22.2 Localized swelling, mass and lump, trunk (principal); R19.09 Other intra-abdominal and pelvic swelling, mass and lump